=== PATIENT | male | born 1940 | race Caucasian/White ===

== ENCOUNTER 2024-08-30 08:32 | Day surgery (SDC) | payer MEDICARE, OTHER ==
[~2024-08-30] VITALS: Ht 195.6 cm; Wt 84.2 kg
[2024-08-30] VITALS (10 sets, daily range): BP systolic 109–125; BP diastolic 60–78; PULSE 60; RESP 10–17; O2SAT 94–99
--- NOTE | 2024-08-30 09:10 | ELECTROCARDIOGRAPH REPORT ---
[place] Test Date: 2024-08-30 Test Time: 09:07:27 Pat Name: MAYELA ACEVEDO Department: [facility] Patient ID: [id number] Room: Gender: M Conference Organizer: BHAVIN : 1940 Requested By: MARILYN PRINCE Order Number: [id number] Reading MD: Dr. Giana Prince Measurements Intervals Sebastian Rate: 95 P: 0 VA: 75 QRS: 17 QRSD: 81 T: 19 QT: 398 QTc: 501 Interpretive Statements A-V dual-paced complexes w/ some inhibition No further analysis attempted due to paced rhythm Electronically Signed On 08-31-2024 6:56:[address] Giana Prince Please click the below link to view image of tracing.
[2024-08-30] MEDS ORDERED: ACET-890 PO (09:16)
[2024-08-30] MEDS ORDERED: EMPA10TA PO (09:16)
[2024-08-30] MEDS ORDERED: HYDR12.55 PO (09:16)
[2024-08-30] MEDS ORDERED: TOPI-95 PO (09:16)
[2024-08-30] MEDS ORDERED: SILD50TA53 PO (09:16)
[2024-08-30] MEDS ORDERED: DOXY25TA58 PO (09:16)
[2024-08-30] MEDS ORDERED: METO-384 PO (09:16)
[2024-08-30] MEDS ORDERED: ASPI-611 PO (09:16)
[2024-08-30] MEDS ORDERED: NITR0.4T48 (09:16)
[2024-08-30] MEDS ORDERED: ATOR40TA71 PO (09:16)
[2024-08-30] MEDS: LORazepam 0.5 MG tablet PO PRN (12:02)
[2024-08-30] MEDS: normal saline 1,000 ML IV SCH (12:02)
[2024-08-30] MEDS: diphenhydrAMINE 25mg capsule PO PRN (12:02)
[2024-08-30] MEDS: acetaminophen 325mg tablet PO PRN (12:03)
[2024-08-30] MEDS ORDERED: fentaNYL/PF 50MCG/1 ML 2ML syringe ONE (13:31)
[2024-08-30] MEDS ORDERED: heparin 1,000unit/ml 10ml vial 10 ML ONE (13:31)
[2024-08-30] MEDS ORDERED: verapamil 2.5 mg/ml inj IV ONE (13:31)
[2024-08-30] MEDS ORDERED: midazolam 1 mg/ML 2ml injection ONE (13:31)
[2024-08-30] MEDS ORDERED: LIDOcaine 1% (10mg/ml) 2ml vial ONE (13:31)
[2024-08-30] MEDS ORDERED: nitroGLYCERIN 500mcg/5mL D5W 5 ML IV ONE (13:32)
[2024-08-30] MEDS ORDERED: iohexol 350MG/ML 100ml bottle IV ONE (13:32)
[2024-08-30] MEDS ORDERED: LIDOcaine 1% 30ml preserv. free vial ONE (14:17)
[2024-08-30] MEDS ORDERED: ondansetron/PF 4mg/2ml inj IV PRN (15:10)
[2024-08-30] MEDS ORDERED: proCHLORperazine 10 MG/2 ml inj IV PRN (15:10)
[2024-08-30] MEDS ORDERED: OXAZEpam 15mg capsule PO PRN (15:10)
--- NOTE | 2024-09-12 09:59 | CARDIOLOGY REPORT ---
DATE OF SERVICE: 08/30/2024 DICTATING PHYSICIAN: Giana Prince MD PROCEDURE REPORT DATE OF STUDY: 08/30/2024 PROCEDURES: * Selective coronary angiography. * Conscious sedation monitoring time for 15 minutes. INDICATIONS: * Shortness of breath. * Abnormal stress test. PHYSICIAN: Giana Prince MD DESCRIPTION OF PROCEDURE: After informed consent was obtained, the patient was brought to the lab where he was prepped and draped in the usual sterile fashion. A 6-Serbian sheath was inserted into the right femoral artery. Using a JL4 followed by JR4 catheter, selective coronary angiography was performed. HEMODYNAMICS: For the patient's hemodynamics, please refer to the event log. Left ventricular end diastolic pressure was 2 mmHg. FINDINGS: The left main coronary artery is a normal caliber vessel free of significant disease. The left inferior descending coronary artery has a previously deployed stent in the proximal LAD. Immediately after the stent, the LAD is chronically occluded with left to left and right to left collaterals. The circumflex coronary artery is a large dominant vessel free of significant disease. The right coronary artery is a medium caliber vessel free of significant disease. 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 * Mild luminal irregularities of the circumflex and RCA. * Left ventriculography was not performed. Limited contrast was used in view of the patient's elevated creatinine. Giana Prince MD TID: [id number] RECEIPT: [id number] DESIRE/[facility]
== END 2024-08-30 16:45 | disposition home or self-care (01) ==
LOC: SSTAY O 08:32
PROVIDERS: ATTEND Student in an Organized Health Care Education/Training Program
DX: R94.39 Abnormal result of other cardiovascular function study (principal); I25.10 Atherosclerotic heart disease of native coronary artery without angina pectoris; I25.82 Chronic total occlusion of coronary artery; I11.0 Hypertensive heart disease with heart failure; I50.9 Heart failure, unspecified; I49.5 Sick sinus syndrome; I25.2 Old myocardial infarction; Z79.899 Other long term (current) drug therapy; Z79.82 Long term (current) use of aspirin; Z98.890 Other specified postprocedural states
CPT/HCPCS: 93005; 93454; 99152; C1760; C1894; J1644; J2003; J2250; J3010; J3490; J7030; Q0163; Q9967; Z7610; 93458